=== PATIENT | male | born 1960 | race Caucasian/White ===

== ENCOUNTER 2021-05-30 17:42 | Emergency (ER) | payer MEDICARE ==
[2021-05-30 18:22] LABS: ALBUMIN 3.7 g/dL (3.4-5.0); BILIRUBIN - TOTAL 0.8 mg/dL (0.2-1.0); BUN/CREAT RATIO (CALC) 10.6 RATIO; CREATININE 0.85 mg/dL (0.67-1.17); GLOBULIN (CALCULATION) 3.6 g/dL; POTASSIUM 3.7 mmol/L (3.5-5.1); TOTAL PROTEIN 7.3 g/dL (6.4-8.2)
[2021-05-30 18:43] LABS: BASOPHIL 0.9 % (0-2); EOSINOPHIL 0.8 % (0-5); HCT 45.3 % (42.0-52.0); HGB 15.2 g/dl (13.2-18.0); MCH 32.4 pg (25.0-31.0); MCHC 33.6 g/dL (32.0-36.0); MCV 96.6 fL (78.0-100.0); MONOCYTE 6.9 % (0-12); MPV 11.1 fL (6.0-9.5); NEUTROPHIL 71.1 % (41-80); NRBC 0; PLT 220 K/uL (150-400); RBC 4.69 M/uL (4.70-6.00); RDW 13.6 % (11.5-14.0); WBC 7.6 K/uL (4.0-10.5)
[2021-05-30 20:15] LABS: BILIRUBIN NEGATIVE (NEGATIVE); BLOOD NEGATIVE Ery/uL (NEGATIVE); CLARITY CLEAR (CLEAR); COLOR YELLOW (YELLOW); GLUCOSE (U) NORMAL (NORMAL); LEUKOCYTES NEGATIVE Leu/uL (NEGATIVE); NITRITE NEGATIVE (NEGATIVE); PROTEIN NEGATIVE (NEGATIVE); SPECIFIC GRAVITY <=1.005 (1.001-1.030); UROBILINOGEN 0.2 mg/dL (0.2-1.0)
[2021-05-30] MEDS ORDERED: FLOMAX 0.4 MG0.4 MG PO (20:21)
== END 2021-05-30 20:51 | disposition home or self-care (01) ==
LOC: FER 17:42
PROVIDERS: Emergency Medicine
DX: R10.11 Right upper quadrant pain (principal); I10 Essential (primary) hypertension; J44.9 Chronic obstructive pulmonary disease, unspecified; F17.200 Nicotine dependence, unspecified, uncomplicated; Z88.0 Allergy status to penicillin; Z20.822 Contact with and (suspected) exposure to COVID-19
CPT/HCPCS: 36415; 71045; 80053; 81003; 84484; 85025; 93005; J1885; J7030; Q9967; U0002

== ENCOUNTER 2021-06-05 12:43 | Emergency (ER) | payer MEDICARE ==
[~2021-06-05 12:43] MED LIST: FLOMAX 0.4 MG0.4 MG PO
[2021-06-05 13:30] LABS: BASOPHIL 0.8 % (0-2); HCT 45.6 % (42.0-52.0); HGB 15.9 g/dl (13.2-18.0); LYMPHOCYTE 20.3 % (15-48); MCH 32.9 pg (25.0-31.0); MCHC 34.9 g/dL (32.0-36.0); MCV 94.2 fL (78.0-100.0); MONOCYTE 7.4 % (0-12); MPV 10.2 fL (6.0-9.5); NEUTROPHIL 70.2 % (41-80); NRBC 0; PLT 237 K/uL (150-400); RBC 4.84 M/uL (4.70-6.00); RDW 13.5 % (11.5-14.0); WBC 6.1 K/uL (4.0-10.5)
[2021-06-05 13:31] LABS: BILIRUBIN NEGATIVE (NEGATIVE); BLOOD NEGATIVE Ery/uL (NEGATIVE); CLARITY CLEAR (CLEAR); COLOR YELLOW (YELLOW); GLUCOSE (U) NORMAL (NORMAL); LEUKOCYTES TRACE Leu/uL (NEGATIVE); NITRITE NEGATIVE (NEGATIVE); PROTEIN NEGATIVE (NEGATIVE); UROBILINOGEN 0.2 mg/dL (0.2-1.0)
[2021-06-05 13:41] LABS: URINARY WBC RARE
[2021-06-05 13:49] LABS: ALBUMIN 3.7 g/dL (3.4-5.0); BILIRUBIN - TOTAL 0.6 mg/dL (0.2-1.0); BUN/CREAT RATIO (CALC) 11.9 RATIO; CREATININE 0.84 mg/dL (0.67-1.17); POTASSIUM 4.5 mmol/L (3.5-5.1); TOTAL PROTEIN 7.7 g/dL (6.4-8.2)
[2021-06-05] MEDS ORDERED: METRONIDAZOLE500 MG PO (15:25)
[2021-06-05] MEDS ORDERED: BIAXIN500 MG PO (15:25)
[2021-06-05] MEDS ORDERED: OMEPRAZOLE 20MG20 MG PO (15:25)
[2021-06-05] MEDS ORDERED: BENTYL10 MG PO (15:26)
[2021-06-05] MEDS ORDERED: NORCO 5-325 TA1 EACH PO (15:26)
== END 2021-06-05 15:43 | disposition home or self-care (01) ==
LOC: FER 12:43
PROVIDERS: Nurse Practitioner Family
DX: A04.8 Other specified bacterial intestinal infections (principal); K59.00 Constipation, unspecified; I10 Essential (primary) hypertension; J44.9 Chronic obstructive pulmonary disease, unspecified; Z88.0 Allergy status to penicillin
CPT/HCPCS: 36415; 80053; 81001; 83690; 85025; 87339; J2270; J7030; Q9967